=== PATIENT | female | born 1995 | race African-American/Black ===

== ENCOUNTER 2023-11-09 17:38 | Inpatient (IN) | payer OTHER ==
[2023-11-09 18:37] VITALS: BMI 30.1
[2023-11-09] MEDS ORDERED: BENZOCAINE/MENTHOL (CHLORASEPTIC ) LOZENGE MM PRN (20:13)
[2023-11-09] MEDS ORDERED: MAG HYDROX/AL HYDROX/SIMETH 30 ML UNIT-DOSE CUP PO PRN (20:13)
[2023-11-09] MEDS ORDERED: BENZONATATE 200 MG CAPSULE PO PRN (20:13)
[2023-11-09] MEDS ORDERED: P-EPHED 60MG/TRIPROLIDI 2.5MG TABLET PO PRN (20:13)
[2023-11-09] MEDS ORDERED: MAGNESIUM HYDROX 2400MG/30ML ORAL SUSPENSION 30 ML CUP PO PRN (20:13)
[2023-11-09] MEDS ORDERED: POLYETHYLENE GLYCOL (HEALTHYLAX) 3350 17 GM PACKET PO PRN (20:13)
[2023-11-09] MEDS ORDERED: LOPERAMIDE HCL 2 MG CAPSULE PO PRN (20:13)
[2023-11-09] MEDS ORDERED: guaiFENesin 600 MG TABLET.ER (FP) PO PRN (20:13)
[2023-11-09] MEDS ORDERED: hydrOXYzine PAMOATE 25 MG CAPSULE (FP) PO PRN (20:13)
[2023-11-09] MEDS ORDERED: hydrOXYzine PAMOATE 25 MG CAPSULE (FP) PO ONE (21:58)
[2023-11-09] MEDS: hydrOXYzine PAMOATE 50 MG CAPSULE (FP) PO PRN (22:01)
[2023-11-09] MEDS: propRANOLol HCL 10 MG TABLET PO ONE (23:01)
[2023-11-09] MEDS: MELATONIN 5 MG TABLETS PO SCH (23:01)
[2023-11-09] MEDS: THIAMINE 100 MG TABLET PO SCH (23:01)
[2023-11-09] MEDS: ACETAMINOPHEN 325 MG TABLET (FP) PO PRN (23:56)
[2023-11-10 12:09] LABS: HEMATOCRIT 38.9 % (32.4-45.2); HEMOGLOBIN 12.4 GM/dL (10.7-15.3); MCH 25.5 pg (25.7-33.7); MCHC 31.7 g/dl (32.0-36.0); MEAN CELL VOLUME 80.3 fl (80-96); MEAN PLT VOLUME 8.5 fl (7.5-11.1); PLATELET COUNT 406 10^3/uL (134-434); RBC 4.85 M/mm3 (3.60-5.2); RDW 15.2 % (11.6-15.6); WHITE BLOOD COUNT 12.3 K/mm3 (4.0-10.0)
[2023-11-10 12:13] LABS: URINE APPEARANCE CLOUDY; URINE BILIRUBIN NEGATIVE (NEGATIVE); URINE COLOR DK YELLOW; URINE GLUCOSE (UA) NEGATIVE (NEGATIVE); URINE KETONE NEGATIVE (NEGATIVE); URINE LEUK ESTERASE NEGATIVE (NEGATIVE); URINE NITRITE NEGATIVE (NEGATIVE); URINE PROTEIN TRACE (NEGATIVE)
[2023-11-10] MEDS ORDERED: TUBERCULIN PPD 5 TU/0.1ML VIAL ID ONE (12:32)
[2023-11-10] MEDS: PRENATAL VITAMINS W/ FOLIC ACID TABLET (FP) PO SCH (12:34)
[2023-11-10] MEDS: TUBERCULIN PPD 5 TU/0.1ML SYRINGE (IN PATIENT USE ONLY) ID ONE (12:34)
[2023-11-10 13:23] LABS: POTASSIUM 4.2 mmol/L (3.5-5.1)
[2023-11-10 13:42] LABS: TOT PROT 6.6 g/dl (6.4-8.2)
[2023-11-10 13:46] LABS: BILIRUBIN,TOTAL 0.7 mg/dL (0.2-1)
[2023-11-10 13:47] LABS: CREATININE 0.7 mg/dL (0.55-1.3)
[2023-11-10 13:52] LABS: ALBUMIN 3.3 g/dl (3.4-5.0)
[2023-11-10 14:03] LABS: CALCIUM 9.2 mg/dL (8.5-10.1)
[2023-11-10 14:04] LABS: BLOOD UREA NITROGEN 8.4 mg/dL (7-18)
[2023-11-10] MEDS ORDERED: ONDANSETRON *ODT* 4 MG TABLET SL PRN (20:17)
[2023-11-11] MEDS: SIMETHICONE 80 MG TAB.CHEW (FP) PO PRN (16:51)
[2023-11-11] MEDS: IBUPROFEN 600 MG TABLET (FP) PO PRN (21:02)
[2023-11-11] MEDS: SERTRALINE HCL 50 MG TABLET (FP) PO SCH (21:42)
[2023-11-12] MEDS: ARIPiprazole 5 MG TABLET PO SCH (09:37)
[2023-11-13] MEDS: hydrOXYzine PAMOATE 50 MG CAPSULE (FP) PO PRN (16:47)
[2023-11-13] MEDS: LITHIUM CARBONATE 300 MG CAPSULE PO SCH (21:12)
[2023-11-13] MEDS: SUVOREXANT 10 MG TABLET PO PRN (21:13)
[2023-11-14] MEDS: ARIPiprazole 10 MG TABLET PO SCH (09:57)
[2023-11-15] MEDS: SUVOREXANT 10 MG TABLET PO PRN (21:05)
[2023-11-16] MEDS: SUVOREXANT 15 MG TABLET PO PRN (21:02)
[2023-11-18] MEDS: CYCLOBENZAPRINE HCL 5 MG TABLET PO SCH (11:07)
[2023-11-18] MEDS: LITHIUM CARBONATE 300 MG CAPSULE PO SCH (21:15)
[2023-11-19] MEDS: hydrOXYzine PAMOATE 50 MG CAPSULE (FP) PO ONE (04:03)
[2023-11-19] MEDS: ARIPiprazole 5 MG TABLET PO SCH (10:14)
[2023-11-19] MEDS: LITHIUM CARBONATE 300 MG CAPSULE PO SCH (10:16)
[2023-11-19] MEDS: SUVOREXANT 5 MG TABLET PO PRN (21:11)
[2023-11-19] MEDS ORDERED: SUVOREXANT 15 MG TABLET PO PRN (22:00)
[2023-11-20] MEDS: traZODone HCL 50 MG TABLET (FP) PO SCH (21:18)
[2023-11-20] MEDS: GABAPENTIN 100 MG CAPSULE PO SCH (21:18)
[2023-11-20] MEDS ORDERED: traZODone HCL 100 MG TABLET (FP) PO SCH (22:00)
[2023-11-21] MEDS: DEXTROAMPHETAMINE/AMPHETAMINE 10 MG CAP.ER.24H PO SCH (09:43)
[2023-11-22] MEDS: GABAPENTIN 300 MG CAPSULE PO SCH (21:17)
[2023-11-23] MEDS: GABAPENTIN 400 MG CAPSULE PO SCH (21:03)
[2023-11-24] MEDS: traZODone HCL 100 MG TABLET (FP) PO SCH (21:14)
[2023-11-25] MEDS: CYCLOBENZAPRINE HCL 10 MG TABLET (FP) PO PRN (13:23)
[2023-11-26] MEDS: IBUPROFEN 400 MG TABLET (FP) PO PRN (13:56)
[2023-11-27 07:02] VITALS: BP 128/85; PULSE 99; RESP 17; TEMP 97.7
== END 2023-11-27 11:00 | disposition home or self-care (01) | DRG 772 ==
LOC: YASAS 17:38 → Y3NR 20:14 → Y5N 11-10 12:27
PROVIDERS: ADMIT Allergy & Immunology; ATTEND Psychiatry & Neurology Pain Medicine
PROC: HZ42ZZZ Group Counseling for Substance Abuse Treatment, Cognitive-Behavioral (ICD-10-PCS; principal; 2023-11-09)
DX: F15.20 Other stimulant dependence, uncomplicated (principal); F13.20 Sedative, hypnotic or anxiolytic dependence, uncomplicated; F12.20 Cannabis dependence, uncomplicated; F19.280 Other psychoactive substance dependence with psychoactive substance-induced anxiety disorder; F19.24 Other psychoactive substance dependence with psychoactive substance-induced mood disorder; F31.9 Bipolar disorder, unspecified; F25.1 Schizoaffective disorder, depressive type; F63.3 Trichotillomania; G47.00 Insomnia, unspecified; Z88.8 Allergy status to other drugs, medicaments and biological substances; M54.50 Low back pain, unspecified; M62.830 Muscle spasm of back
CPT/HCPCS: 36415; 80053; 80178; 80305; 81003; 81025; 84439; 84443; 84481; 85027; 86780; 87811; 93005; 93010